=== PATIENT | female | born 1995 | race Caucasian/White ===

== ENCOUNTER 2024-04-14 14:22 | Emergency (ER) | payer OTHER, SELFPAY ==
[2024-04-14 14:25] VITALS: BP 152/113
--- NOTE | 2024-04-14 14:25 | ED.GENMED ---
ED Provider Triage
<Arin Chandler PIPEFITTER - Last Filed: 04/14/24 14:33>
-
Patient seen by provider in Triage?: Seen in Triage
Attestation: A medical screening examination has been initiated by a qualified medical provider. Based on the assessment performed at this time, it has been determined that an emergent medical condition may exist and the patient has been informed
that further medical evaluation and possible additional diagnostic testing may be needed.
HPI: 28-year-old female here for exposure to fiberglass. States at [employer] 4 days ago, a special needs student was riping apart a room divider and throwing it at personnel. with debris flying all over. Pt she was brushing it out of her
hair. That day she had a scratchy throat that persists. 2 nights ago developed mid chest pain and trouble breathing.
Co workers have told her it could be asbestos.
denies fever or chills or headache.
GENERAL: Alert , in no apparent distress
EYE: No visual abnormalities.
NECK: Trachea midline
ENT: No visible abnormalities.
LUNGS: No acute respiratory distress
NEUROLOGICAL: Alert and oriented
SKIN: Skin intact. No visible changes.
MUSCULOSKELETAL: Moving extremities normally
PSYCH: Normal and appropriate interaction.
This is a medical evaluation conducted in person to initiate diagnostic evaluation and provide initial therapeutics. Please see further documentation by the treating clinician.
28-year-old female
History of Present Illness
<Arin Chandler PIPEFITTER - Last Filed: 04/14/24 14:33>
General
Chief Complaint: Breathing Problem
Time Seen by Provider: 04/14/24 15:20
<Angelique Foote PA-C - Last Filed: 04/14/24 23:27>
General
Source: patient
Exam Limitations: none
Nursing documentation reviewed up to this point in time: agreed with
History of Present Illness
History of Present Illness:
Patient is a 28 year old female presenting with chest discomfort and cough after known fiberglass exposure at work. 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
pieces of the wall and throwing them at adequacy. She states that on he was crumbling pieces and raining overhead. It was later found out that the wall contained fiberglass. Patient states that since she has had some throat
irritation and dry cough. She feels difficulty breathing worse with exertion. She also has a feeling that something is stuck in her chest. Today she was seen by the school nurse and referred to the emergency department for further evaluation
given subjective shortness of breath
Patient denies any fever, productive cough, hemoptysis. She states others at school are having similar symptoms.
No history of asthma or other lung conditions.
Review of Systems
<Angelique Foote PA-C - Last Filed: 04/14/24 23:27>
Review of Systems
Allergies reviewed?: Yes
All Other Systems: ROS reviewed and negative except as documented in HPI and ROS
Phy Exam
<Angelique Foote PA-C - Last Filed: 04/14/24 23:27>
Physical Exam
Physical Exam:
Vitals: Hypertensive, otherwise vitals signs stable. Afebrile.
General: Patient is very well appearing, no acute distress
Skin: Warm and dry, no rashes or lesions
Head: Normocephalic, atraumatic
Eyes: Sclera nonicteric. EOMs intact. No nystagmus.
Throat: No pharyngeal erythema. No tonsillar edema or exudates. Uvula midline. Airway clear. Protecting airway
Neck: Normal ROM, no cervical spine tenderness, no meningismus
Cardiac: Regular rate and rhythm, no murmurs. No reproducible chest wall tenderness
Pulm: Normal respiratory effort, no wheezes, rales, rhonchi heard on exam. Occasional dry cough. O2 saturation 100% on RA on my assessment
Abdomen: No abdominal tenderness.
Extremities: No evidence of cyanosis or edema
Neuro: AAOx3. Grossly intact.
Psychiatric: Normal affect.
Course
<Arin Chandler NP - Last Filed: 04/14/24 14:33>
Orders/Labs/Results
Orders:
Orders
04/14/24 14:30
CR Chest - 2 Views Urgent
Comment:
Reason For Exam: SOB
Vital Signs
Initial and Last Documented VS:
Initial Vital Signs
Temp Pulse Resp BP Pulse Ox
98.2 F 98 20 152/113 94
04/14/24 14:25 04/14/24 14:25 04/14/24 14:25 04/14/24 14:25 04/14/24 14:25
Last Documented Vital Signs
Temp Pulse Resp BP Pulse Ox
98.2 F 88 20 135/95 98
04/14/24 14:25 04/14/24 16:48 04/14/24 16:48 04/14/24 16:48 04/14/24 16:48
<Angelique Foote PA-C - Last Filed: 04/14/24 23:27>
Orders/Labs/Results
Orders:
Orders
04/14/24 14:30
CR Chest - 2 Views Urgent
Comment:
Reason For Exam: SOB
Vital Signs
Initial and Last Documented VS:
Initial Vital Signs
Temp Pulse Resp BP Pulse Ox
98.2 F 98 20 152/113 94
04/14/24 14:25 04/14/24 14:25 04/14/24 14:25 04/14/24 14:25 04/14/24 14:25
Last Documented Vital Signs
Temp Pulse Resp BP Pulse Ox
98.2 F 88 20 135/95 98
04/14/24 14:25 04/14/24 16:48 12/16/24 16:48 04/14/24 16:48 04/14/24 16:48
<Felipe Aguilar DO - Last Filed: 04/14/24 16:36>
Orders/Labs/Results
Orders:
Orders
04/14/24 14:30
CR Chest - 2 Views Urgent
Comment:
Reason For Exam: SOB
Vital Signs
Initial and Last Documented VS:
Initial Vital Signs
Temp Pulse Resp BP Pulse Ox
98.2 F 98 20 152/113 94
04/14/24 14:25 04/14/24 14:25 04/14/24 14:25 04/14/24 14:25 04/14/24 14:25
Last Documented Vital Signs
Temp Pulse Resp BP Pulse Ox
98.2 F 88 20 135/95 98
04/14/24 14:25 04/14/24 16:48 04/14/24 16:48 04/14/24 16:48 04/14/24 16:48
<Angelique Foote PA-C - Last Filed: 04/14/24 23:27>
MDM/Problems Addressed
Differential Diagnosis Includes:
Not limited to: chemical exposure, viral bronchitis, restrictive airway disease, etc.
MDM/Problems Addressed:
28-year-old female with cough presenting after known fiberglass exposure at work. Also with mild throat irritation. She has no fevers. Apparently other coworkers with similar symptoms. Patient initially hypertensive on arrival although improved
by my assessment. Patient is afebrile and not hypoxic. On exam�patient is very well-appearing, no apparent distress. Heart regular rate and rhythm. Lungs are clear bilaterally. Dry cough. She is not hypoxic. She is not tachypneic. Mildly
pharyngeal erythema without tonsillar edema or exudates. Airway is clear. A chest x-ray was obtained without any acute abnormalities. Ultimately patient is well-appearing and stable for discharge. Suspect likely viral etiology rather than
chemical exposure from fiberglass. Will provide albuterol inhaler at home. Return precautions discussed. Stable for discharge
Chronic conditions affecting care:
N/A
Acute Exacerbation and/or Progression of Chronic Illness:
N/A
<Angelique Foote PA-C - Last Filed: 04/14/24 23:27>
*Radiology
Radiology exam reviewed: preliminary read by ED provider (Reviewed by me-no acute disease) and radiology read reviewed
*Pulse Oximetry
Patient hypoxic: no
*EKG
Interpreted by ED Provider?: NA
*Electrician Constructor Supervisor Interpretation
Rate: Electrician Constructor Supervisor- N/A
*Critical Care Note
Total Time (30-74mins, 75-104mins- exclusive of procedures): Not Applicable
ED Attending Note
<Arin Chandler PIPEFITTER - Last Filed: 04/14/24 14:33>
-
Portions of this chart may have been created with voice recognition software.� Occasional wrong word or��sound alike� substitutions may have occurred due to the inherent limitations of voice recognition software.
<Felipe Aguilar DO - Last Filed: 04/14/24 16:36>
ED Attending Note
Patient seen and examined by attending physician: Yes
I performed a history and physical exam of patient and discussed management with resident, I reviewed resident's note and agree with documented findings and plan of care.: Yes
ED Attending Note:
I reviewed and agree with history and plan by Angelique Foote. My exam revealed:
Physical Exam
General: no apparent distress, not acutely ill
Neck: supple. no meningeal signs. normal posterior pharynx
Heart: s1/s2 regular rate and rhythm, no murmur. equal radial
pulses.
HEENT: Pupils equal round reactive to light, EOMI
Lungs: no acute respiratory distress. clear bilaterally
Abdomen: normal bowel sounds. not tender. no CVAT
Neuro: alert and oriented. no focal neurological deficits
Skin: no rash
Psychiatric: well kept. interactive and cooperative
Extremities: no edema. good distal pulses
Patient with cough and sore throat, normal chest x-ray. Suspect viral cause versus exposure. Stable for discharge. Will prescribe albuterol. Return precautions given
Discharge Plan
Departure
Patient Disposition: Home (Routine Discharge)
Date of Disposition: 04/14/24
Time of Disposition: 16:30
Patient with high blood pressure during this ER visit?: Yes
Condition: Good
Covid-19: Not Applicable
Discharge Problem:
Chemical exposure, Cough
Instructions: Cough in adults - ED discharge instructions, BLOOD PRESSURE
Prescriptions:
New
albuterol sulfate 90 mcg/actuation HFA aerosol inhaler
2 puff inhalation Q6H PRN (Reason: cough) Qty: 6.7 0RF
No Action
No Meds [No Current Medications]
0
prednisone 20 MG tablet
40 mg PO DAILY Qty: 10 0RF
Referrals:
Cinda Arnett CRNP [Family Provider] - Follow up in 1 week
Stand Alone Forms: Return to Work
Activity Restrictions/Additional Instructions:
RETURN TO THE EMERGENCY DEPARTMENT WITH ANY FEVERS, WORSENING CHEST PAIN, SHORTNESS OF BREATH/DIFFICULTY BREATHING, COUGHING UP BLOOD, WORSENING IN CURRENT SYMPTOMS, OR ANY OTHER CONCERNS
-You should follow-up with your Workmen's Comp. physician for further evaluation/management. Follow-up with primary care as needed
-A prescription for an albuterol inhaler has been sent to your pharmacy. You can use this up every 6 hours as needed for cough/shortness of breath.
-Stay well-hydrated.
Monitor symptoms closely return to the emergency department with any acute worsening/new symptoms or any other concerns
Interventions
Interventions:
*Risk Screen - Suicide Last Done: 04/14/24 15:27
*General Assessment Last Done: 04/14/24 14:25
*Neglect/Abuse Screening Last Done: 04/14/24 15:27
*ED COVID-19 Vaccine History Last Done: 04/14/24 15:27
*Nursing Disposition Last Done: 04/14/24 16:48
ED- Cardiac Assessment Last Done: 04/14/24 15:27
ED- Pulmonary Assessment Last Done: 04/14/24 15:27
Discharge Date and Time
Discharge Date/Time: 04/14/24 16:49
Print Language: MONTSERRATIAN
[2024-04-14 16:48] VITALS: BP 135/95
== END 2024-04-14 16:49 | disposition home or self-care (01) ==
LOC: EMR 14:22
PROVIDERS: EMERGENCY PHYSICIAN Emergency Medicine; FAMILY PHYSICIAN Nurse Practitioner Adult Health
DX: T65.831A Toxic effect of fiberglass, accidental (unintentional), initial encounter (principal); R05.9 Cough, unspecified; Y92.9 Unspecified place or not applicable
CPT/HCPCS: 99283; 71046